=== PATIENT | female | born 1990 | race Caucasian/White ===

== ENCOUNTER 2016-10-30 18:59 | Emergency (ER) | payer OTHER ==
[~2016-10-30] VITALS: Ht 157.4 cm; Wt 95.3 kg
[~2016-10-30 18:59] MED LIST: AMITRIPTYLINE50 MG PO; BACTRIM DS 8001 TA1 PO; BENADRYL25 MG PO; BENTYL10 MG PO; BIRTH CONTROL1 EAC1 PO; CELEXA20 MG PO; CELEXA40 MG PO; CIPRO250 MG PO; CLARITIN10 MG PO; CORDROL20 MG PO; DEPAKOTE250 MG PO; FLONASE 0.05% 121 EA NAS; KEFLEX500 MG PO; KENALOG0.1% TP; LIDEX0.05% T; MACROBID100 M1 PO; MACROBID100 MG PO; PHENERGAN W/DM120 ML PO; PREDNICOT10 MG PO; PREDNICOT20 MG PO; PREDNISONE10 MG PO; PRENATAL ONE DA1 TAB PO; PREVIFEM 35 MCG1 TA1 PO; PROAIR HFA0.09 MG/AC IH; ROBITUSSIN DM 105 ML PO; VISTARIL25 M1 PO; VISTARIL25 MG PO; VISTARIL50 MG PO; WELLBUTRIN SR150 MG PO; ZITHROMAX250 MG PO; ZOFRAN ODT4 MG SL; ZOFRAN4 MG PO; Zofran4 MG PO
[2016-10-30] MEDS ORDERED: DEPAKOTE ER250 MG PO (19:54)
[2016-10-30] MEDS ORDERED: BACTRIM DS 8001 TAB PO (21:57)
== END 2016-10-30 23:23 | disposition home or self-care (01) ==
LOC: ED 18:59
DX: L08.9 Local infection of the skin and subcutaneous tissue, unspecified (principal); L70.9 Acne, unspecified; F17.200 Nicotine dependence, unspecified, uncomplicated; Z79.899 Other long term (current) drug therapy; Z88.0 Allergy status to penicillin; Z88.1 Allergy status to other antibiotic agents

== ENCOUNTER → 2016-11-21 | Outpatient (CLI) | payer OTHER ==
[~2016-11-21] MED LIST changes: +BACTRIM DS 8001 TAB PO; +DEPAKOTE ER250 MG PO
[2016-11-21 12:56] LABS: HEMATOCRIT 45.7 % (37.0-47.0); HEMOGLOBIN 15.6 g/dl (12.0-16.0); HEMOGLOBIN A1c 5.7 % (4.8-5.6); MEAN CELL VOLUME 85.9 fl (81.0-99.0); MEAN CORPUSCULAR HGB 29.3 pg (27.0-31.0); MEAN CORPUSCULAR HGB CONC 34.1 g/dl (33.0-37.0); MEAN PLATELET VOLUME 10.6 fl (9.6-12.3); PLATELET COUNT AUTOMATED 310 10*3/uL (130-400); RED BLOOD COUNT 5.32 10*6/uL (4.10-5.10); RED CELL DISTRI WIDTH 13.3 % (0-14.5); WHITE BLOOD COUNT 11.9 10*3/uL (4.8-10.8)
[2016-11-21 13:08] LABS: ALBUMIN 3.4 gm/dl (3.1-4.5); ALKALINE PHOSPHATASE 114 U/L (45-117); BILIRUBIN, DIRECT < 0.1 mg/dL (0.0-0.2); BUN 12 mg/dl (7-24); CARBON DIOXIDE 26 mmol/L (21-32); CHLORIDE 108 mmol/L (98-107); CHOLESTEROL 176 mg/dL (<200); EST GLOM FILT AFRICAN AMERICAN > 60 ml/min; FREE T4 1.22 ng/dl (0.76-1.46); GLUCOSE 103 mg/dL (65-99); HDL CHOLESTEROL 31 mg/dl (40-60); LDL CHOLESTEROL 120 mg/dL (9-159); POTASSIUM 4.1 mmol/L (3.5-5.1); SGOT/AST 27 IU/L (3-35); SGPT/ALT 61 U/L (12-78); SODIUM 142 mmol/L (136-145); T3 UPTAKE 31 % (31-39); TOTAL PROTEIN 6.8 gm/dL (6.4-8.2); TRIGLYCERIDES 127 mg/dl (<150); VLDL CHOLESTEROL 25 mg/dL (6-40)
[2016-11-21 13:14] LABS: BILIRUBIN, TOTAL 0.3 mg/dl (0.2-1.0)
[2016-11-21 13:15] LABS: ATYPICAL LYMPHS 1 % (0-0); EOSINOPHIL # 0.5 10*3/uL (0-0.4); EOSINOPHILS 4 % (1-4); LYMPHOCYTE # 4.9 10*3/uL (1.3-4.4); MONOCYTE # 0.4 10*3/uL (0.1-1.0); NEUTROPHIL # 6.2 10*3/uL (2.3-7.9); NEUTROPHILS 52 % (47-73); PLATELET SUFFICIENCY NORMAL (NORMAL); TOTAL CELLS COUNTED 100 #CELLS
== END | disposition home or self-care (01) ==
LOC: LAB 12:08
PROVIDERS: Nurse Practitioner Family
DX: Z79.899 Other long term (current) drug therapy (principal)

== ENCOUNTER → 2017-03-03 | Outpatient (CLI) | payer OTHER | LOC: RESCLI 02:04 | DX: F33.42 Major depressive disorder, recurrent, in full remission (principal); E66.09 Other obesity due to excess calories; Z68.41 Body mass index [BMI] 40.0-44.9, adult; Z72.0 Tobacco use ==

== ENCOUNTER 2017-05-11 05:02 | Emergency (ER) | payer OTHER ==
[~2017-05-11] VITALS: Ht 157.4 cm; Wt 90.7 kg
[2017-05-11 05:30] LABS: BILIRUBIN NEGATIVE (NEGATIVE); BLOOD NEGATIVE (NEGATIVE); CLARITY SL CLOUDY (CLEAR); COLOR YELLOW (YELLOW); GLUCOSE NEGATIVE (NEGATIVE); KETONE NEGATIVE (NEGATIVE); LEUKO ESTERASE NEGATIVE (NEGATIVE); NITRITE NEGATIVE (NEGATIVE); SPECIFIC GRAVITY 1.015 (1.005-1.030); UROBILINOGEN 0.2 E.U./dl (0.2-1.0)
[2017-05-11 05:38] LABS: YEAST TRACE
[2017-05-11] MEDS ORDERED: ZYRTEC10 MG PO (05:41)
[2017-05-11] MEDS ORDERED: ZITHROMAX250 MG PO (05:41)
[2017-05-11] MEDS ORDERED: PROAIR HFA8.5 GM INH (05:49)
== END 2017-05-11 06:07 | disposition home or self-care (01) ==
LOC: ED 05:02
PROVIDERS: Emergency Medicine Emergency Medical Services
DX: J20.9 Acute bronchitis, unspecified (principal); J01.00 Acute maxillary sinusitis, unspecified; F17.200 Nicotine dependence, unspecified, uncomplicated; Z88.1 Allergy status to other antibiotic agents; Z88.0 Allergy status to penicillin; Z79.899 Other long term (current) drug therapy

== ENCOUNTER 2017-05-14 23:40 | Emergency (ER) | payer OTHER ==
[~2017-05-14] VITALS: Ht 157.4 cm; Wt 90.7 kg
[~2017-05-14 23:40] MED LIST changes: +PROAIR HFA8.5 GM INH; +ZYRTEC10 MG PO
[2017-05-15 00:28] LABS: ALBUMIN 3.8 gm/dl (3.1-4.5); ALKALINE PHOSPHATASE 106 U/L (45-117); BASO % 0.3 % (0.0-1.0); BUN 5 mg/dl (7-24); CHLORIDE 106 mmol/L (98-107); CREATININE 0.69 mg/dL (0.55-1.02); EOS # 0.1 10*3/uL (0.0-0.4); EOS % 0.4 % (1.0-4.0); HEMATOCRIT 43.9 % (37.0-47.0); HEMOGLOBIN 14.9 g/dl (12.0-16.0); LIPASE 134 U/L (73-393); LYMPH # 4.9 10*3/uL (1.3-4.4); LYMPH % 31.2 % (27.0-41.0); MEAN CELL VOLUME 88.3 fl (81.0-99.0); MEAN CORPUSCULAR HGB CONC 33.9 g/dl (33.0-37.0); MEAN PLATELET VOLUME 10.9 fl (9.6-12.3); MONO # 0.6 10*3/uL (0.1-1.0); MONO % 3.9 % (3.0-9.0); NEUT # 9.9 10*3/uL (2.3-7.9); NEUT % 63.8 % (47.0-73.0); PLATELET COUNT AUTOMATED 257 10*3/uL (130-400); POTASSIUM 3.7 mmol/L (3.5-5.1); RED BLOOD COUNT 4.97 10*6/uL (4.10-5.10); RED CELL DISTRI WIDTH 13.1 % (0-14.5); SGOT/AST 29 IU/L (3-35); SGPT/ALT 74 U/L (12-78); SODIUM 140 mmol/L (136-145); TOTAL PROTEIN 6.8 gm/dL (6.4-8.2); WHITE BLOOD COUNT 15.6 10*3/uL (4.8-10.8)
[2017-05-15 00:37] LABS: BILIRUBIN NEGATIVE (NEGATIVE); BLOOD NEGATIVE (NEGATIVE); CLARITY CLEAR (CLEAR); COLOR YELLOW (YELLOW); GLUCOSE NEGATIVE (NEGATIVE); KETONE NEGATIVE (NEGATIVE); LEUKO ESTERASE NEGATIVE (NEGATIVE); NITRITE NEGATIVE (NEGATIVE); SPECIFIC GRAVITY 1.015 (1.005-1.030); UROBILINOGEN 0.2 E.U./dl (0.2-1.0)
[2017-05-15 00:53] LABS: BACTERIA 1+; EPITHELIAL CELLS 35-40
[2017-05-15 00:54] LABS: WBC 0-2 wbc/hpf (0-5)
== END 2017-05-15 02:22 | disposition home or self-care (01) ==
LOC: ED 23:40
PROVIDERS: Nurse Practitioner Family
DX: R10.30 Lower abdominal pain, unspecified (principal); R11.0 Nausea; R05 Cough; F17.200 Nicotine dependence, unspecified, uncomplicated; Z88.0 Allergy status to penicillin; Z88.1 Allergy status to other antibiotic agents; Z79.899 Other long term (current) drug therapy

== ENCOUNTER 2017-08-04 15:18 | Emergency (ER) | payer SELFPAY ==
[~2017-08-04] VITALS: Ht 157.4 cm; Wt 95.3 kg
[2017-08-04] MEDS ORDERED: PREDNISONE20 M1 PO (16:20)
[2017-08-04] MEDS ORDERED: ZYRTEC10 MG PO (16:20)
[2017-08-04] MEDS ORDERED: ROBITUSSIN DM 105 ML PO (16:20)
== END 2017-08-04 16:26 | disposition home or self-care (01) ==
LOC: ED 15:18
DX: B34.9 Viral infection, unspecified (principal); F17.200 Nicotine dependence, unspecified, uncomplicated; Z88.0 Allergy status to penicillin; Z88.1 Allergy status to other antibiotic agents; Z79.899 Other long term (current) drug therapy

== ENCOUNTER 2017-08-05 12:09 | Emergency (ER) | payer SELFPAY ==
[~2017-08-05] VITALS: Ht 157.4 cm; Wt 95.3 kg
[~2017-08-05 12:09] MED LIST changes: +PREDNISONE20 M1 PO
[2017-08-05 12:33] LABS: BASO % 0.3 % (0.0-1.0); EOS # 0.2 10*3/uL (0.0-0.4); EOS % 3.1 % (1.0-4.0); HEMATOCRIT 41.5 % (37.0-47.0); HEMOGLOBIN 14.3 g/dl (12.0-16.0); LYMPH # 2.5 10*3/uL (1.3-4.4); LYMPH % 40.6 % (27.0-41.0); MEAN CORPUSCULAR HGB CONC 34.5 g/dl (33.0-37.0); MEAN PLATELET VOLUME 11.1 fl (9.6-12.3); MONO # 0.2 10*3/uL (0.1-1.0); MONO % 3.6 % (3.0-9.0); NEUT # 3.2 10*3/uL (2.3-7.9); NEUT % 52.2 % (47.0-73.0); PLATELET COUNT AUTOMATED 176 10*3/uL (130-400); RED BLOOD COUNT 4.77 10*6/uL (4.10-5.10); RED CELL DISTRI WIDTH 13.3 % (0-14.5); WHITE BLOOD COUNT 6.2 10*3/uL (4.8-10.8)
[2017-08-05 12:42] LABS: ACT PARTIAL THROMBO TIME 26.3 SECONDS (20.8-31.5); INTERNATIONAL NORM RATIO 0.9 (2.0-3.5)
[2017-08-05 12:50] LABS: ALBUMIN 3.3 gm/dl (3.1-4.5); ALKALINE PHOSPHATASE 103 U/L (45-117); BUN 9 mg/dl (7-24); CHLORIDE 109 mmol/L (98-107); CREATININE 0.78 mg/dL (0.55-1.02); POTASSIUM 3.6 mmol/L (3.5-5.1); SGOT/AST 46 IU/L (3-35); SGPT/ALT 89 U/L (12-78); SODIUM 140 mmol/L (136-145); TOTAL PROTEIN 6.2 gm/dL (6.4-8.2)
[2017-08-05 12:52] LABS: TROPONIN I < 0.015 ng/ml (<0.045)
== END 2017-08-05 12:48 | disposition home or self-care (01) ==
LOC: ED 12:09
PROVIDERS: Emergency Medicine
DX: R09.1 Pleurisy (principal); J06.9 Acute upper respiratory infection, unspecified; R05 Cough; Z79.899 Other long term (current) drug therapy; Z88.0 Allergy status to penicillin; Z88.1 Allergy status to other antibiotic agents

== ENCOUNTER 2017-10-10 22:39 | Emergency (ER) | payer SELFPAY ==
[~2017-10-10] VITALS: Ht 157.4 cm; Wt 99.8 kg
== END 2017-10-11 01:07 | disposition home or self-care (01) ==
LOC: ED 22:39
DX: R11.2 Nausea with vomiting, unspecified (principal); F17.200 Nicotine dependence, unspecified, uncomplicated; Z79.899 Other long term (current) drug therapy; Z88.0 Allergy status to penicillin; Z88.1 Allergy status to other antibiotic agents

== ENCOUNTER 2017-10-19 23:01 | Emergency (ER) | payer SELFPAY ==
[~2017-10-19] VITALS: Ht 157.4 cm; Wt 99.8 kg
[2017-10-19 23:34] LABS: HEMATOCRIT 40.1 % (37.0-47.0); MEAN CELL VOLUME 86.1 fl (81.0-99.0); MEAN CORPUSCULAR HGB CONC 34.9 g/dl (33.0-37.0); MEAN PLATELET VOLUME 10.5 fl (9.6-12.3); PLATELET COUNT AUTOMATED 290 10*3/uL (130-400); RED BLOOD COUNT 4.66 10*6/uL (4.10-5.10); WHITE BLOOD COUNT 14.7 10*3/uL (4.8-10.8)
[2017-10-19 23:50] LABS: ALBUMIN 3.3 gm/dl (3.1-4.5); ALKALINE PHOSPHATASE 108 U/L (45-117); BUN 7 mg/dl (7-24); CHLORIDE 107 mmol/L (98-107); CREATININE 0.72 mg/dL (0.55-1.02); POTASSIUM 3.2 mmol/L (3.5-5.1); SGOT/AST 31 IU/L (3-35); SGPT/ALT 71 U/L (12-78); SODIUM 141 mmol/L (136-145); TOTAL PROTEIN 6.1 gm/dL (6.4-8.2)
[2017-10-19 23:52] LABS: TOTAL CELLS COUNTED 100 #CELLS
[2017-10-19 23:53] LABS: PLATELET SUFFICIENCY NORMAL (NORMAL)
[2017-10-20 00:03] LABS: BETA-HCG, QUANT < 1.0 mIU/mL (1-3)
== END 2017-10-20 00:35 | disposition home or self-care (01) ==
LOC: ED 23:01
PROVIDERS: Student in an Organized Health Care Education/Training Program
DX: R11.2 Nausea with vomiting, unspecified (principal); R10.84 Generalized abdominal pain; F17.200 Nicotine dependence, unspecified, uncomplicated; Z88.0 Allergy status to penicillin; Z88.1 Allergy status to other antibiotic agents; Z79.899 Other long term (current) drug therapy

== ENCOUNTER 2017-11-16 14:22 | Emergency (ER) | payer SELFPAY ==
[~2017-11-16] VITALS: Ht 157.4 cm; Wt 99.8 kg
[2017-11-16 14:46] LABS: BILIRUBIN NEGATIVE (NEGATIVE); BLOOD NEGATIVE (NEGATIVE); CLARITY CLEAR (CLEAR); COLOR YELLOW (YELLOW); GLUCOSE NEGATIVE (NEGATIVE); KETONE NEGATIVE (NEGATIVE); LEUKO ESTERASE NEGATIVE (NEGATIVE); NITRITE NEGATIVE (NEGATIVE); PH 6.5 (5.0-9.0); SPECIFIC GRAVITY <= 1.005 (1.005-1.030); UROBILINOGEN 0.2 E.U./dl (0.2-1.0)
[2017-11-16 15:00] LABS: BACTERIA 1+; EPITHELIAL CELLS TNTC; RBC 0-2 rbc/hpf (0-2); WBC 0-2 wbc/hpf (0-5)
[2017-11-16 15:05] LABS: BASO # 0.1 10*3/uL (0.0-0.1); BASO % 0.3 % (0.0-1.0); EOS # 0.2 10*3/uL (0.0-0.4); EOS % 1.3 % (1.0-4.0); HEMATOCRIT 43.4 % (37.0-47.0); HEMOGLOBIN 14.9 g/dl (12.0-16.0); LYMPH # 4.6 10*3/uL (1.3-4.4); LYMPH % 29.4 % (27.0-41.0); MEAN CELL VOLUME 86.5 fl (81.0-99.0); MEAN CORPUSCULAR HGB 29.7 pg (27.0-31.0); MEAN CORPUSCULAR HGB CONC 34.3 g/dl (33.0-37.0); MEAN PLATELET VOLUME 10.6 fl (9.6-12.3); MONO # 0.5 10*3/uL (0.1-1.0); MONO % 3.1 % (3.0-9.0); NEUT # 10.2 10*3/uL (2.3-7.9); NEUT % 65.5 % (47.0-73.0); PLATELET COUNT AUTOMATED 282 10*3/uL (130-400); RED BLOOD COUNT 5.02 10*6/uL (4.10-5.10); RED CELL DISTRI WIDTH 13.2 % (0-14.5); WHITE BLOOD COUNT 15.6 10*3/uL (4.8-10.8)
[2017-11-16 15:23] LABS: ALBUMIN 3.6 gm/dl (3.1-4.5); ALKALINE PHOSPHATASE 122 U/L (45-117); BUN 6 mg/dl (7-24); CHLORIDE 108 mmol/L (98-107); CREATININE 0.81 mg/dL (0.55-1.02); LIPASE 122 U/L (73-393); POTASSIUM 3.4 mmol/L (3.5-5.1); SGOT/AST 32 IU/L (3-35); SGPT/ALT 63 U/L (12-78); SODIUM 142 mmol/L (136-145); TOTAL PROTEIN 6.7 gm/dL (6.4-8.2)
[2017-11-16] MEDS ORDERED: CLARITIN10 MG PO (15:51)
[2017-11-16] MEDS ORDERED: ZOFRAN4 MG PO (15:51)
[2017-11-16] MEDS ORDERED: PREDNISONE10 MG PO (15:51)
== END 2017-11-16 16:00 | disposition home or self-care (01) ==
LOC: ED 14:22
PROVIDERS: Nurse Practitioner Family
DX: J20.9 Acute bronchitis, unspecified (principal); R03.0 Elevated blood-pressure reading, without diagnosis of hypertension; F17.200 Nicotine dependence, unspecified, uncomplicated; Z79.899 Other long term (current) drug therapy; Z88.0 Allergy status to penicillin; Z88.1 Allergy status to other antibiotic agents

== ENCOUNTER 2018-01-06 15:29 | Emergency (ER) | payer SELFPAY ==
[~2018-01-06] VITALS: Wt 95.3 kg
[2018-01-06 16:02] LABS: BASO # 0.1 10*3/uL (0.0-0.1); BASO % 0.4 % (0.0-1.0); EOS # 0.2 10*3/uL (0.0-0.4); HEMATOCRIT 46.9 % (37.0-47.0); HEMOGLOBIN 15.9 g/dl (12.0-16.0); LYMPH # 4.6 10*3/uL (1.3-4.4); LYMPH % 30.1 % (27.0-41.0); MEAN CELL VOLUME 87.8 fl (81.0-99.0); MEAN CORPUSCULAR HGB 29.8 pg (27.0-31.0); MEAN CORPUSCULAR HGB CONC 33.9 g/dl (33.0-37.0); MEAN PLATELET VOLUME 10.7 fl (9.6-12.3); MONO # 0.4 10*3/uL (0.1-1.0); MONO % 2.7 % (3.0-9.0); NEUT % 65.5 % (47.0-73.0); PLATELET COUNT AUTOMATED 281 10*3/uL (130-400); RED BLOOD COUNT 5.34 10*6/uL (4.10-5.10); RED CELL DISTRI WIDTH 13.2 % (0-14.5); WHITE BLOOD COUNT 15.3 10*3/uL (4.8-10.8)
[2018-01-06 16:16] LABS: BILIRUBIN NEGATIVE (NEGATIVE); BLOOD NEGATIVE (NEGATIVE); CLARITY CLEAR (CLEAR); COLOR YELLOW (YELLOW); GLUCOSE NEGATIVE (NEGATIVE); KETONE NEGATIVE (NEGATIVE); LEUKO ESTERASE NEGATIVE (NEGATIVE); NITRITE NEGATIVE (NEGATIVE); SPECIFIC GRAVITY <= 1.005 (1.005-1.030); UROBILINOGEN 0.2 E.U./dl (0.2-1.0)
[2018-01-06 16:18] LABS: ALBUMIN 4.1 gm/dl (3.1-4.5); ALKALINE PHOSPHATASE 118 U/L (45-117); BUN 7 mg/dl (7-24); CHLORIDE 106 mmol/L (98-107); CREATININE 0.85 mg/dL (0.55-1.02); LIPASE 145 U/L (73-393); POTASSIUM 3.8 mmol/L (3.5-5.1); SGOT/AST 33 IU/L (3-35); SGPT/ALT 67 U/L (12-78); SODIUM 139 mmol/L (136-145); TOTAL PROTEIN 7.2 gm/dL (6.4-8.2)
[2018-01-06 16:24] LABS: EPITHELIAL CELLS 0-2; WBC 0-2 wbc/hpf (0-5)
[2018-01-06] MEDS ORDERED: ZOFRAN ODT4 MG SL ×2 (18:02→18:23)
== END 2018-01-06 18:30 | disposition home or self-care (01) ==
LOC: ED 15:29
PROVIDERS: Physician Assistant
DX: R11.2 Nausea with vomiting, unspecified (principal); R10.32 Left lower quadrant pain; Z88.0 Allergy status to penicillin; Z88.1 Allergy status to other antibiotic agents; Z79.899 Other long term (current) drug therapy

== ENCOUNTER 2018-03-29 22:35 | Emergency (ER) | payer SELFPAY ==
[~2018-03-29] VITALS: Ht 157.4 cm; Wt 99.8 kg
[2018-03-29 23:14] LABS: BILIRUBIN NEGATIVE (NEGATIVE); BLOOD NEGATIVE (NEGATIVE); CLARITY SL CLOUDY (CLEAR); COLOR YELLOW (YELLOW); GLUCOSE NEGATIVE (NEGATIVE); KETONE NEGATIVE (NEGATIVE); LEUKO ESTERASE NEGATIVE (NEGATIVE); NITRITE NEGATIVE (NEGATIVE); PH 5.5 (5.0-9.0); SPECIFIC GRAVITY > 1.030 (1.005-1.030); UROBILINOGEN 0.2 E.U./dl (0.2-1.0)
[2018-03-29 23:19] LABS: BACTERIA 1+; EPITHELIAL CELLS 30-35; MUCOUS TRACE; WBC 0-2 wbc/hpf (0-5)
[2018-03-30] MEDS ORDERED: CYCLOBENZAPRINE10 MG PO (01:16)
[2018-03-30] MEDS ORDERED: MOBIC7.5 MG PO (01:16)
== END 2018-03-30 01:17 | disposition home or self-care (01) ==
LOC: ED 22:35
PROVIDERS: Emergency Medicine
DX: S39.012A Strain of muscle, fascia and tendon of lower back, initial encounter (principal); Z88.0 Allergy status to penicillin; Z88.1 Allergy status to other antibiotic agents; W18.39XA Other fall on same level, initial encounter; Y93.89 Activity, other specified; Y92.89 Other specified places as the place of occurrence of the external cause; Y99.8 Other external cause status

== ENCOUNTER 2018-08-11 18:21 | Emergency (ER) | payer SELFPAY ==
[~2018-08-11] VITALS: Ht 157.4 cm; Wt 95.3 kg
[~2018-08-11 18:21] MED LIST changes: +CYCLOBENZAPRINE10 MG PO; +MOBIC7.5 MG PO
[2018-09-15] MEDS ORDERED: HYDROCODONE-AC1 EAC1 PO (14:46)
[2018-09-15] MEDS ORDERED: ZOVIRAX IV (14:58)
[2018-10-10] MEDS ORDERED: ZOVIRAX IJ (14:04)
[2018-10-15] MEDS ORDERED: ZOVIRAX IV (11:14)
[2018-11-23] MEDS ORDERED: ZOFRAN4 MG PO (00:28)
== END 2018-08-11 19:27 | disposition home or self-care (01) ==
LOC: ED 18:21
DX: S80.02XA Contusion of left knee, initial encounter (principal); Z88.0 Allergy status to penicillin; Z88.1 Allergy status to other antibiotic agents; W19.XXXA Unspecified fall, initial encounter; Y93.89 Activity, other specified; Y92.89 Other specified places as the place of occurrence of the external cause; Y99.8 Other external cause status

== ENCOUNTER 2018-08-30 22:58 | Emergency (ER) | payer SELFPAY ==
[~2018-08-30] VITALS: Ht 157.4 cm; Wt 95.3 kg
[2018-08-30 23:48] LABS: BASO % 0.2 % (0.0-1.0); EOS # 0.1 10*3/uL (0.0-0.4); EOS % 0.5 % (1.0-4.0); HEMATOCRIT 45.3 % (37.0-47.0); HEMOGLOBIN 15.4 g/dl (12.0-16.0); LYMPH # 2.5 10*3/uL (1.3-4.4); LYMPH % 18.4 % (27.0-41.0); MEAN CELL VOLUME 90.1 fl (81.0-99.0); MEAN CORPUSCULAR HGB 30.6 pg (27.0-31.0); MEAN PLATELET VOLUME 10.5 fl (9.6-12.3); MONO # 0.4 10*3/uL (0.1-1.0); MONO % 2.9 % (3.0-9.0); NEUT # 10.6 10*3/uL (2.3-7.9); NEUT % 77.7 % (47.0-73.0); PLATELET COUNT AUTOMATED 229 10*3/uL (130-400); RED BLOOD COUNT 5.03 10*6/uL (4.10-5.10); RED CELL DISTRI WIDTH 13.2 % (0-14.5); WHITE BLOOD COUNT 13.6 10*3/uL (4.8-10.8)
[2018-08-31 00:14] LABS: ALBUMIN 3.6 gm/dl (3.1-4.5); ALKALINE PHOSPHATASE 109 U/L (45-117); BUN 14 mg/dl (7-24); CHLORIDE 105 mmol/L (98-107); CREATININE 0.85 mg/dL (0.55-1.02); LIPASE 104 U/L (73-393); POTASSIUM 3.3 mmol/L (3.5-5.1); SGOT/AST 14 IU/L (3-35); SGPT/ALT 37 U/L (12-78); SODIUM 139 mmol/L (136-145); TOTAL PROTEIN 6.5 gm/dL (6.4-8.2)
[2018-09-15] MEDS ORDERED: HYDROCODONE-AC1 EAC1 PO (14:46)
[2018-09-15] MEDS ORDERED: ZOVIRAX IV (14:58)
[2018-10-10] MEDS ORDERED: ZOVIRAX IJ (14:04)
[2018-10-15] MEDS ORDERED: ZOVIRAX IV (11:14)
[2018-11-23] MEDS ORDERED: ZOFRAN4 MG PO (00:28)
== END 2018-08-31 03:03 | disposition home or self-care (01) ==
LOC: ED 22:58
PROVIDERS: Nurse Practitioner Family
DX: A08.4 Viral intestinal infection, unspecified (principal); F17.200 Nicotine dependence, unspecified, uncomplicated; Z88.0 Allergy status to penicillin; Z88.1 Allergy status to other antibiotic agents

== ENCOUNTER 2018-09-11 22:25 | Emergency (ER) | payer SELFPAY ==
[~2018-09-11] VITALS: Ht 157.4 cm; Wt 95.3 kg
[2018-09-12 00:12] LABS: BASO # 0.1 10*3/uL (0.0-0.1); BASO % 0.3 % (0.0-1.0); EOS % 0.1 % (1.0-4.0); HEMOGLOBIN 15.7 g/dl (12.0-16.0); LYMPH # 3.2 10*3/uL (1.3-4.4); LYMPH % 16.5 % (27.0-41.0); MEAN CELL VOLUME 90.6 fl (81.0-99.0); MEAN CORPUSCULAR HGB 30.3 pg (27.0-31.0); MEAN CORPUSCULAR HGB CONC 33.4 g/dl (33.0-37.0); MEAN PLATELET VOLUME 10.3 fl (9.6-12.3); MONO # 0.6 10*3/uL (0.1-1.0); MONO % 2.9 % (3.0-9.0); NEUT # 15.4 10*3/uL (2.3-7.9); NEUT % 79.7 % (47.0-73.0); PLATELET COUNT AUTOMATED 299 10*3/uL (130-400); RED BLOOD COUNT 5.19 10*6/uL (4.10-5.10); RED CELL DISTRI WIDTH 13.3 % (0-14.5); WHITE BLOOD COUNT 19.3 10*3/uL (4.8-10.8)
[2018-09-12 00:35] LABS: ALBUMIN 4.1 gm/dl (3.1-4.5); ALKALINE PHOSPHATASE 126 U/L (45-117); BUN 9 mg/dl (7-24); CHLORIDE 105 mmol/L (98-107); CREATININE 0.85 mg/dL (0.55-1.02); LIPASE 80 U/L (73-393); POTASSIUM 3.7 mmol/L (3.5-5.1); SGOT/AST 22 IU/L (3-35); SGPT/ALT 64 U/L (12-78); SODIUM 141 mmol/L (136-145); TOTAL PROTEIN 7.2 gm/dL (6.4-8.2)
[2018-09-12] MEDS ORDERED: ZOFRAN4 MG PO (02:51)
[2018-09-15] MEDS ORDERED: HYDROCODONE-AC1 EAC1 PO (14:46)
[2018-09-15] MEDS ORDERED: ZOVIRAX IV (14:58)
[2018-10-10] MEDS ORDERED: ZOVIRAX IJ (14:04)
[2018-10-15] MEDS ORDERED: ZOVIRAX IV (11:14)
[2018-11-23] MEDS ORDERED: ZOFRAN4 MG PO (00:28)
== END 2018-09-12 03:15 | disposition home or self-care (01) ==
LOC: ED 22:25
PROVIDERS: Nurse Practitioner Family
DX: R11.2 Nausea with vomiting, unspecified (principal); R53.83 Other fatigue; R52 Pain, unspecified; Z88.0 Allergy status to penicillin; Z88.1 Allergy status to other antibiotic agents; Z79.899 Other long term (current) drug therapy

== ENCOUNTER 2018-09-17 00:59 | Emergency (ER) | payer BC ==
[~2018-09-17] VITALS: Ht 157.4 cm; Wt 95.3 kg
[~2018-09-17 00:59] MED LIST changes: +HYDROCODONE-AC1 EAC1 PO; +ZOVIRAX IV
[2018-10-10] MEDS ORDERED: ZOVIRAX IJ (14:04)
[2018-10-15] MEDS ORDERED: ZOVIRAX IV (11:14)
[2018-11-23] MEDS ORDERED: ZOFRAN4 MG PO (00:28)
== END 2018-09-17 02:07 | disposition home or self-care (01) ==
LOC: ED 00:59
DX: T82.848A Pain due to vascular prosthetic devices, implants and grafts, initial encounter (principal); G89.18 Other acute postprocedural pain; M79.601 Pain in right arm; F17.200 Nicotine dependence, unspecified, uncomplicated; Z88.0 Allergy status to penicillin; Z88.1 Allergy status to other antibiotic agents; Y83.8 Other surgical procedures as the cause of abnormal reaction of the patient, or of later complication, without mention of misadventure at the time of the procedure; Y92.89 Other specified places as the place of occurrence of the external cause

== ENCOUNTER → 2018-10-26 | Outpatient (CLI) | payer BC ==
[~2018-10-26] MED LIST changes: +ZOVIRAX IJ
[2018-10-29 18:04] LABS: BLASTOMYCES ANTIBODY Negative (Neg:<1:1)
[2018-10-30 21:05] LABS: COCCIDIOIDES IGG 0.5 IV (<=0.9); COCCIDIOIDES IGM 0.5 IV (<=0.9)
== END | disposition home or self-care (01) ==
LOC: LAB 14:58
PROVIDERS: Internal Medicine
DX: N93.9 Abnormal uterine and vaginal bleeding, unspecified (principal); G03.9 Meningitis, unspecified

== ENCOUNTER 2019-03-08 00:01 | Emergency (ER) | payer BC ==
[~2019-03-08] VITALS: Ht 157.4 cm; Wt 96.2 kg
[2019-03-08] MEDS ORDERED: SEPTDS PO (01:22)
[2019-03-08] MEDS ORDERED: KEFLEX500 M1 PO (01:22)
== END 2019-03-08 01:32 | disposition home or self-care (01) ==
LOC: ED 00:01
DX: L02.214 Cutaneous abscess of groin (principal); L73.8 Other specified follicular disorders; F17.200 Nicotine dependence, unspecified, uncomplicated; Z88.0 Allergy status to penicillin; Z88.1 Allergy status to other antibiotic agents

== ENCOUNTER 2019-08-31 03:16 | Emergency (ER) | payer BC ==
[~2019-08-31] VITALS: Wt 96.6 kg
[~2019-08-31 03:16] MED LIST changes: +KEFLEX500 M1 PO; +SEPTDS PO
== END 2019-08-31 05:04 | disposition home or self-care (01) ==
LOC: ED 03:16
DX: J02.9 Acute pharyngitis, unspecified (principal); R09.89 Other specified symptoms and signs involving the circulatory and respiratory systems; Z88.8 Allergy status to other drugs, medicaments and biological substances; Z88.0 Allergy status to penicillin

== ENCOUNTER 2020-01-09 19:54 | Emergency (ER) | payer BC ==
[~2020-01-09] VITALS: Ht 157.4 cm; Wt 95.3 kg
[2020-01-09 20:30] LABS: BASO % 0.3 % (0.0-1.0); EOS # 0.2 10*3/uL (0.0-0.4); EOS % 1.4 % (1.0-4.0); HEMATOCRIT 45.2 % (37.0-47.0); LYMPH # 4.3 10*3/uL (1.3-4.4); LYMPH % 32.4 % (27.0-41.0); MEAN CELL VOLUME 87.9 fl (81.0-99.0); MEAN CORPUSCULAR HGB 29.2 pg (27.0-31.0); MEAN CORPUSCULAR HGB CONC 33.2 g/dl (33.0-37.0); MEAN PLATELET VOLUME 10.3 fl (9.6-12.3); MONO # 0.4 10*3/uL (0.1-1.0); NEUT # 8.2 10*3/uL (2.3-7.9); NEUT % 62.7 % (47.0-73.0); PLATELET COUNT AUTOMATED 280 10*3/uL (130-400); RED BLOOD COUNT 5.14 10*6/uL (4.10-5.10); RED CELL DISTRI WIDTH 13.2 % (0-14.5); WHITE BLOOD COUNT 13.2 10*3/uL (4.8-10.8)
[2020-01-09 20:41] LABS: ACT PARTIAL THROMBO TIME 28.7 SECONDS (20.0-32.1)
[2020-01-09 20:45] LABS: ALKALINE PHOSPHATASE 91 U/L (45-117); BUN 13 mg/dl (7-24); CHLORIDE 110 mmol/L (98-107); CREATININE 0.77 mg/dL (0.55-1.02); LIPASE 114 U/L (73-393); POTASSIUM 3.7 mmol/L (3.5-5.1); SGOT/AST 18 IU/L (3-35); SGPT/ALT 43 U/L (12-78); SODIUM 140 mmol/L (136-145); TOTAL PROTEIN 6.6 gm/dL (6.4-8.2)
[2020-01-09 20:47] LABS: BETA-HCG, QUANT < 1.0 mIU/mL (1-3); TROPONIN I < 0.015 ng/ml (<0.045)
== END 2020-01-09 22:21 | disposition home or self-care (01) ==
LOC: ED 19:54
PROVIDERS: Family Medicine
DX: R07.9 Chest pain, unspecified (principal); F32.9 Major depressive disorder, single episode, unspecified; I10 Essential (primary) hypertension; E78.00 Pure hypercholesterolemia, unspecified; F17.200 Nicotine dependence, unspecified, uncomplicated; Z88.8 Allergy status to other drugs, medicaments and biological substances; Z88.0 Allergy status to penicillin

== ENCOUNTER 2020-02-14 15:35 | Emergency (ER) | payer BC ==
[2020-02-14 16:41] LABS: BILIRUBIN NEGATIVE; BLOOD NEGATIVE (NEGATIVE); CLARITY CLEAR (CLEAR); COLOR YELLOW (YELLOW); GLUCOSE NEGATIVE; KETONE NEGATIVE; LEUKO ESTERASE NEGATIVE (NEGATIVE); NITRITE NEGATIVE (NEGATIVE); PH 6.5 (4.5-8.0); SPECIFIC GRAVITY 1.005 (1.001-1.030); UROBILINOGEN 0.2 E.U./dl (0.0-1.0)
[2020-02-14 16:51] LABS: BACTERIA 1+; RBC 0-2 rbc/hpf (0-2); WBC 0-2 wbc/hpf (0-5)
== END 2020-02-14 16:56 | disposition home or self-care (01) ==
LOC: ED 15:35
PROVIDERS: Nurse Practitioner Family
DX: Z32.02 Encounter for pregnancy test, result negative (principal); I10 Essential (primary) hypertension; F32.9 Major depressive disorder, single episode, unspecified; E78.00 Pure hypercholesterolemia, unspecified; F17.200 Nicotine dependence, unspecified, uncomplicated

== ENCOUNTER 2020-05-15 16:49 | Emergency (ER) | payer BC ==
[~2020-05-15] VITALS: Ht 157.4 cm; Wt 90.7 kg
[2020-05-15] MEDS ORDERED: CLEOCIN HCL300 MG PO (18:41)
== END 2020-05-15 18:52 | disposition home or self-care (01) ==
LOC: ED 16:49
DX: K02.9 Dental caries, unspecified (principal); Z88.0 Allergy status to penicillin; Z88.8 Allergy status to other drugs, medicaments and biological substances

== ENCOUNTER 2020-08-14 11:24 | Emergency (ER) | payer BC ==
[~2020-08-14] VITALS: Ht 157.4 cm; Wt 99.8 kg
[~2020-08-14 11:24] MED LIST changes: +CLEOCIN HCL300 MG PO
[2020-08-14] MEDS ORDERED: CLINDAMYCIN HC300 MG PO (12:36)
[2020-08-14] MEDS ORDERED: IBUPROFEN600 MG PO (12:36)
== END 2020-08-14 12:59 | disposition home or self-care (01) ==
LOC: ED 11:24
DX: K08.89 Other specified disorders of teeth and supporting structures (principal); I10 Essential (primary) hypertension; F32.9 Major depressive disorder, single episode, unspecified; E78.00 Pure hypercholesterolemia, unspecified; F17.200 Nicotine dependence, unspecified, uncomplicated; Z88.0 Allergy status to penicillin; Z88.2 Allergy status to sulfonamides

== ENCOUNTER 2021-06-12 18:12 | Emergency (ER) | payer BC ==
[~2021-06-12 18:12] MED LIST changes: +CLINDAMYCIN HC300 MG PO; +IBUPROFEN600 MG PO
[2021-06-12] MEDS ORDERED: SEPTDS PO (21:47)
== END 2021-06-12 21:51 | disposition home or self-care (01) ==
LOC: ED 18:12
DX: L02.411 Cutaneous abscess of right axilla (principal); F17.200 Nicotine dependence, unspecified, uncomplicated; Z88.0 Allergy status to penicillin; Z88.1 Allergy status to other antibiotic agents

== ENCOUNTER 2021-11-20 22:46 | Emergency (ER) | payer OTHER ==
[~2021-11-20] VITALS: Ht 157.4 cm; Wt 90.7 kg
[2021-11-20 23:14] LABS: BILIRUBIN Negative (Negative); BLOOD Negative (Negative); CLARITY Clear (Clear); COLOR Yellow (Yellow); GLUCOSE Negative (Negative); KETONE Negative (Negative); LEUKO ESTERASE Negative (Negative); NITRITE Negative (Negative); UROBILINOGEN 0.2 E.U./dl (0.0-1.0)
[2021-11-20 23:35] LABS: BACTERIA 1+; EPITHELIAL CELLS 21-30
[2021-11-20 23:36] LABS: RBC 0-2 rbc/hpf (0-2); WBC 0-2 wbc/hpf (0-5)
[2021-11-20] MEDS ORDERED: NAPROXEN250 MG PO (23:53)
== END 2021-11-21 00:15 | disposition home or self-care (01) ==
LOC: ED 22:46
PROVIDERS: Internal Medicine
DX: L72.8 Other follicular cysts of the skin and subcutaneous tissue (principal); M54.50 Low back pain, unspecified; R10.9 Unspecified abdominal pain

== ENCOUNTER 2022-02-03 22:14 | Emergency (ER) | payer OTHER ==
[~2022-02-03 22:14] MED LIST changes: +NAPROXEN250 MG PO
[2022-02-04] MEDS ORDERED: Orphenadrine C100 MG PO (01:02)
[2022-02-04] MEDS ORDERED: PREDNISONE10 MG PO (01:02)
== END 2022-02-04 01:12 | disposition home or self-care (01) ==
LOC: ED 22:14
DX: S16.1XXA Strain of muscle, fascia and tendon at neck level, initial encounter (principal); M54.12 Radiculopathy, cervical region; E66.9 Obesity, unspecified; Z88.0 Allergy status to penicillin; Z88.1 Allergy status to other antibiotic agents; Z87.891 Personal history of nicotine dependence; X50.0XXA Overexertion from strenuous movement or load, initial encounter; Y93.89 Activity, other specified; Y92.89 Other specified places as the place of occurrence of the external cause; Y99.8 Other external cause status

== ENCOUNTER 2022-03-09 13:16 | Emergency (ER) | payer OTHER ==
[~2022-03-09] VITALS: Wt 97.5 kg
[~2022-03-09 13:16] MED LIST changes: +Orphenadrine C100 MG PO
[2022-03-09] MEDS ORDERED: CEPHALEXIN500 M1 PO (13:53)
== END 2022-03-09 14:15 | disposition home or self-care (01) ==
LOC: ED 13:16
DX: L02.412 Cutaneous abscess of left axilla (principal)

== ENCOUNTER 2022-03-18 22:35 | Emergency (ER) | payer OTHER ==
[~2022-03-18] VITALS: Ht 157.4 cm; Wt 99.8 kg
[~2022-03-18 22:35] MED LIST changes: +CEPHALEXIN500 M1 PO
[2022-03-18] MEDS ORDERED: SEPTDS PO (23:54)
== END 2022-03-19 00:05 | disposition home or self-care (01) ==
LOC: ED 22:35
DX: L73.9 Follicular disorder, unspecified (principal); Z88.0 Allergy status to penicillin; Z88.1 Allergy status to other antibiotic agents; Z87.891 Personal history of nicotine dependence

== ENCOUNTER → 2022-07-19 | Outpatient (CLI) | payer OTHER ==
[2022-07-19 07:22] LABS: HEMATOCRIT 44.4 % (37.0-47.0); MEAN CELL VOLUME 85.9 fl (81.0-99.0); MEAN CORPUSCULAR HGB 29.4 pg (27.0-31.0); MEAN CORPUSCULAR HGB CONC 34.2 g/dl (33.0-37.0); MEAN PLATELET VOLUME 9.8 fl (9.6-12.3); RED BLOOD COUNT 5.17 10*6/uL (4.10-5.10); RED CELL DISTRI WIDTH 12.9 % (0-14.5); WHITE BLOOD COUNT 14.7 10*3/uL (4.8-10.8)
== END | disposition home or self-care (01) ==
LOC: LAB 07:06
PROVIDERS: ATTEND Physician Assistant
DX: I10 Essential (primary) hypertension (principal); R23.3 Spontaneous ecchymoses

== ENCOUNTER 2022-08-11 09:52 | Emergency (ER) | payer OTHER ==
[~2022-08-11] VITALS: Wt 99.8 kg
[2022-08-11 11:18] LABS: HEMATOCRIT 46.3 % (37.0-47.0); MEAN CELL VOLUME 86.7 fl (81.0-99.0); MEAN CORPUSCULAR HGB 29.4 pg (27.0-31.0); MEAN CORPUSCULAR HGB CONC 33.9 g/dl (33.0-37.0); MEAN PLATELET VOLUME 10.3 fl (9.6-12.3); PLATELET COUNT AUTOMATED 375 10*3/uL (130-400); RED BLOOD COUNT 5.34 10*6/uL (4.10-5.10); RED CELL DISTRI WIDTH 13.2 % (0-14.5); WHITE BLOOD COUNT 19.8 10*3/uL (4.8-10.8)
[2022-08-11 11:31] LABS: MANUAL DIFF REFLEX YES
[2022-08-11 11:38] LABS: ALKALINE PHOSPHATASE 127 U/L (46-116); BETA-HCG, QUANT < 3.0 mIU/mL (0-10); BUN 8 mg/dl (9-23); CHLORIDE 102 mmol/L (98-107); LIPASE 46 U/L (12-53); POTASSIUM 3.7 mmol/L (3.4-5.1); SGPT/ALT 67 U/L (10-49); TOTAL PROTEIN 7.4 gm/dL (6.0-8.0)
[2022-08-11 11:42] LABS: ATYPICAL LYMPHS 3 % (0-0); PLATELET SUFFICIENCY NORMAL (NORMAL); POLYCHROMASIA SLIGHT; TOTAL CELLS COUNTED 100 #CELLS; TOXIC GRANULATION SLIGHT; VACUOLATION OF NEUTROPHILS SLIGHT
== END 2022-08-11 15:30 | disposition home or self-care (01) ==
LOC: ED 09:52
PROVIDERS: Internal Medicine
DX: R19.7 Diarrhea, unspecified (principal); F32.A Depression, unspecified; I10 Essential (primary) hypertension; Z88.0 Allergy status to penicillin; Z88.1 Allergy status to other antibiotic agents

== ENCOUNTER 2022-11-27 00:49 | Emergency (ER) | payer OTHER ==
[~2022-11-27] VITALS: Ht 162.5 cm; Wt 99.8 kg
[2022-11-27] MEDS ORDERED: VIBRAMYCIN100 MG PO (02:40)
== END 2022-11-27 02:42 | disposition home or self-care (01) ==
LOC: ED 00:49
DX: F41.9 Anxiety disorder, unspecified (principal); L73.2 Hidradenitis suppurativa; R42 Dizziness and giddiness; R07.89 Other chest pain; Z88.0 Allergy status to penicillin; Z88.1 Allergy status to other antibiotic agents; Z87.891 Personal history of nicotine dependence

== ENCOUNTER 2022-12-25 20:49 | Emergency (ER) | payer OTHER ==
[~2022-12-25] VITALS: Ht 160 cm; Wt 99.8 kg
[~2022-12-25 20:49] MED LIST changes: +VIBRAMYCIN100 MG PO
[2022-12-25] MEDS ORDERED: NORVASC10 MG PO (21:09)
[2022-12-25] MEDS ORDERED: LAMICTAL25 MG PO (21:09)
[2022-12-25] MEDS ORDERED: ZESTRIL10 MG PO (21:10)
[2022-12-25] MEDS ORDERED: CLINDAMYCIN HC300 MG PO (21:54)
== END 2022-12-25 21:53 | disposition home or self-care (01) ==
LOC: ED 20:49
DX: K08.89 Other specified disorders of teeth and supporting structures (principal); F17.200 Nicotine dependence, unspecified, uncomplicated; Z88.0 Allergy status to penicillin; Z88.1 Allergy status to other antibiotic agents; Z79.899 Other long term (current) drug therapy

== ENCOUNTER 2023-01-27 22:11 | Emergency (ER) | payer OTHER ==
[~2023-01-27 22:11] MED LIST changes: +LAMICTAL25 MG PO; +NORVASC10 MG PO; +ZESTRIL10 MG PO
[2023-01-27] MEDS ORDERED: LEXAPRO10 MG PO (22:53)
[2023-01-27 23:13] LABS: BILIRUBIN Negative (Negative); BLOOD Negative (Negative); CLARITY Clear (Clear); COLOR Yellow (Yellow); GLUCOSE Negative (Negative); KETONE Negative (Negative); LEUKO ESTERASE 1+ (Negative); NITRITE Negative (Negative); SPECIFIC GRAVITY <= 1.005 (1.001-1.030); UROBILINOGEN 0.2 E.U./dl (0.0-1.0)
[2023-01-27 23:30] LABS: BACTERIA TRACE
[2023-01-27] MEDS ORDERED: CIPRO500 MG PO (23:35)
== END 2023-01-27 23:42 | disposition home or self-care (01) ==
LOC: ED 22:11
PROVIDERS: Physician Assistant Medical
DX: N39.0 Urinary tract infection, site not specified (principal); F32.A Depression, unspecified; I10 Essential (primary) hypertension; E78.00 Pure hypercholesterolemia, unspecified; Z88.0 Allergy status to penicillin; Z88.1 Allergy status to other antibiotic agents; Z72.0 Tobacco use

== ENCOUNTER 2023-02-01 16:23 | Emergency (ER) | payer OTHER ==
[~2023-02-01] VITALS: Ht 157.4 cm; Wt 104.3 kg
[~2023-02-01 16:23] MED LIST changes: +CIPRO500 MG PO; +LEXAPRO10 MG PO
[2023-02-01 16:52] LABS: HEMATOCRIT 45.2 % (37.0-47.0); MEAN CELL VOLUME 85.3 fl (81.0-99.0); MEAN CORPUSCULAR HGB 28.3 pg (27.0-31.0); MEAN CORPUSCULAR HGB CONC 33.2 g/dl (33.0-37.0); MEAN PLATELET VOLUME 9.8 fl (9.6-12.3); PLATELET COUNT AUTOMATED 376 10*3/uL (130-400); RED CELL DISTRI WIDTH 13.2 % (0-14.5); WHITE BLOOD COUNT 14.6 10*3/uL (4.8-10.8)
[2023-02-01 16:53] LABS: MANUAL DIFF REFLEX YES
[2023-02-01 17:03] LABS: ACT PARTIAL THROMBO TIME 29.3 SECONDS (20.0-32.1)
[2023-02-01 17:06] LABS: BILIRUBIN Negative (Negative); BLOOD Negative (Negative); CLARITY Clear (Clear); COLOR Yellow (Yellow); GLUCOSE Negative (Negative); KETONE Negative (Negative); LEUKO ESTERASE Negative (Negative); NITRITE Negative (Negative); SPECIFIC GRAVITY <= 1.005 (1.001-1.030); UROBILINOGEN 0.2 E.U./dl (0.0-1.0)
[2023-02-01 17:14] LABS: URINE AMPHETAMINES Negative (1000ng/ml); URINE BARBITURATES Negative (200ng/ml); URINE BENZODIAZEPINES Negative (200ng/ml); URINE CANNABINOIDS (THC) Negative (50ng/ml); URINE COCAINE Negative (300ng/ml); URINE METHADONE Negative (300ng/ml); URINE OPIATES Negative (300ng/ml); URINE PHENCYCLIDINE Negative (25ng/ml)
[2023-02-01 17:15] LABS: ALKALINE PHOSPHATASE 135 U/L (46-116); BUN 8 mg/dl (9-23); CHLORIDE 108 mmol/L (98-107); ETHYL ALCOHOL 3.2 mg/dl (<3); LIPASE 41 U/L (12-53); POTASSIUM 3.7 mmol/L (3.4-5.1); SGPT/ALT 52 U/L (10-49); TOTAL PROTEIN 6.8 gm/dL (6.0-8.0)
[2023-02-01 17:18] LABS: BASOPHILS 2 % (0-1); PLATELET SUFFICIENCY NORMAL (NORMAL); TOTAL CELLS COUNTED 100 #CELLS
[2023-02-01 17:22] LABS: BACTERIA 3+
[2023-02-01] MEDS ORDERED: CIPRO500 MG PO (18:22)
== END 2023-02-01 19:10 | disposition home or self-care (01) ==
LOC: ED 16:23
PROVIDERS: Internal Medicine
DX: N39.0 Urinary tract infection, site not specified (principal); R11.2 Nausea with vomiting, unspecified; F17.200 Nicotine dependence, unspecified, uncomplicated; Z88.0 Allergy status to penicillin; Z88.1 Allergy status to other antibiotic agents; Z79.2 Long term (current) use of antibiotics; Z79.899 Other long term (current) drug therapy

== ENCOUNTER 2023-03-17 22:30 | Emergency (ER) | payer OTHER ==
[~2023-03-17] VITALS: Ht 157.4 cm; Wt 108.9 kg
== END 2023-03-17 23:08 | disposition home or self-care (01) ==
LOC: ED 22:30
DX: I10 Essential (primary) hypertension (principal); F32.A Depression, unspecified; E78.00 Pure hypercholesterolemia, unspecified; Z88.0 Allergy status to penicillin; Z88.1 Allergy status to other antibiotic agents; Z72.0 Tobacco use

== ENCOUNTER 2023-06-14 06:45 | Emergency (ER) | payer OTHER ==
[~2023-06-14] VITALS: Ht 157.4 cm; Wt 99.8 kg
[2023-06-14 07:51] LABS: HEMATOCRIT 40.5 % (37.0-47.0); MEAN CELL VOLUME 86.4 fl (81.0-99.0); MEAN CORPUSCULAR HGB 27.9 pg (27.0-31.0); MEAN CORPUSCULAR HGB CONC 32.3 g/dl (33.0-37.0); MEAN PLATELET VOLUME 10.4 fl (9.6-12.3); PLATELET COUNT AUTOMATED 278 10*3/uL (130-400); RED BLOOD COUNT 4.69 10*6/uL (4.10-5.10); RED CELL DISTRI WIDTH 13.3 % (0-14.5); WHITE BLOOD COUNT 12.1 10*3/uL (4.8-10.8)
[2023-06-14 07:52] LABS: MANUAL DIFF REFLEX YES
[2023-06-14 08:09] LABS: BASOPHILS 1 % (0-1); TOTAL CELLS COUNTED 100 #CELLS
[2023-06-14 08:10] LABS: BURR CELLS FEW; OVALOCYTES FEW; PLATELET SUFFICIENCY NORMAL (NORMAL); POLYCHROMASIA SLIGHT
[2023-06-14 08:12] LABS: ALKALINE PHOSPHATASE 106 U/L (46-116); BUN 15 mg/dl (9-23); CHLORIDE 108 mmol/L (98-107); LIPASE 43 U/L (12-53); POTASSIUM 3.7 mmol/L (3.4-5.1); SGPT/ALT 37 U/L (5-49); TOTAL PROTEIN 6.3 gm/dL (6.0-8.0)
[2023-06-14] MEDS ORDERED: PEPCID AC10 M2 PO (09:58)
== END 2023-06-14 10:02 | disposition home or self-care (01) ==
LOC: ED 06:45
PROVIDERS: Internal Medicine
DX: K21.9 Gastro-esophageal reflux disease without esophagitis (principal); F32.A Depression, unspecified; I10 Essential (primary) hypertension; E78.00 Pure hypercholesterolemia, unspecified; Z88.0 Allergy status to penicillin; Z88.1 Allergy status to other antibiotic agents; Z72.0 Tobacco use

== ENCOUNTER 2023-08-21 06:29 | Emergency (ER) | payer OTHER ==
[~2023-08-21] VITALS: Ht 157.4 cm; Wt 95.3 kg
[~2023-08-21 06:29] MED LIST changes: +PEPCID AC10 M2 PO
[2023-08-21] MEDS ORDERED: ESCITALOPRAM OX20 MG PO (06:44)
[2023-08-21] MEDS ORDERED: LAMOTRIGINE100 MG PO (06:44)
[2023-08-21] MEDS ORDERED: MELOXICAM15 MG PO (07:29)
[2023-08-21] MEDS ORDERED: CYCLOBENZAPRINE10 MG PO (07:29)
== END 2023-08-21 07:35 | disposition home or self-care (01) ==
LOC: ED 06:29
DX: S46.211A Strain of muscle, fascia and tendon of other parts of biceps, right arm, initial encounter (principal); F32.A Depression, unspecified; I10 Essential (primary) hypertension; E78.00 Pure hypercholesterolemia, unspecified; Z88.0 Allergy status to penicillin; Z88.1 Allergy status to other antibiotic agents; Z72.0 Tobacco use; W19.XXXA Unspecified fall, initial encounter; Y93.89 Activity, other specified; Y92.009 Unspecified place in unspecified non-institutional (private) residence as the place of occurrence of the external cause; Y99.8 Other external cause status

== ENCOUNTER 2023-08-27 15:16 | Emergency (ER) | payer OTHER ==
[~2023-08-27] VITALS: Ht 157.4 cm; Wt 95.3 kg
[~2023-08-27 15:16] MED LIST changes: +ESCITALOPRAM OX20 MG PO; +LAMOTRIGINE100 MG PO; +MELOXICAM15 MG PO
[2023-08-27 16:18] LABS: BASO # 0.1 10*3/uL (0.0-0.1); BASO % 0.4 % (0.0-1.0); EOS # 0.5 10*3/uL (0.0-0.4); EOS % 4.2 % (1.0-4.0); HEMATOCRIT 43.8 % (37.0-47.0); LYMPH # 3.4 10*3/uL (1.3-4.4); MEAN CELL VOLUME 86.1 fl (81.0-99.0); MEAN CORPUSCULAR HGB 28.1 pg (27.0-31.0); MEAN CORPUSCULAR HGB CONC 32.6 g/dl (33.0-37.0); MEAN PLATELET VOLUME 9.6 fl (9.6-12.3); MONO # 0.6 10*3/uL (0.1-1.0); MONO % 4.3 % (3.0-9.0); NEUT # 8.4 10*3/uL (2.3-7.9); NEUT % 64.7 % (47.0-73.0); PLATELET COUNT AUTOMATED 355 10*3/uL (130-400); RED BLOOD COUNT 5.09 10*6/uL (4.10-5.10); RED CELL DISTRI WIDTH 13.8 % (0-14.5)
[2023-08-27 16:38] LABS: BUN 9 mg/dl (9-23); CHLORIDE 103 mmol/L (98-107); POTASSIUM 3.3 mmol/L (3.4-5.1)
[2023-08-27] MEDS ORDERED: SEPTDS PO (16:49)
== END 2023-08-27 16:54 | disposition home or self-care (01) ==
LOC: ED 15:16
PROVIDERS: Internal Medicine
DX: L03.113 Cellulitis of right upper limb (principal); F32.A Depression, unspecified; I10 Essential (primary) hypertension; E78.00 Pure hypercholesterolemia, unspecified; Z88.0 Allergy status to penicillin; Z88.1 Allergy status to other antibiotic agents; Z72.0 Tobacco use

== ENCOUNTER 2023-10-24 06:38 | Emergency (ER) | payer OTHER ==
[~2023-10-24] VITALS: Ht 157.4 cm; Wt 95.7 kg
[2023-10-24] MEDS ORDERED: CIPROFLOXACIN H10 ML OPH (07:18)
== END 2023-10-24 07:28 | disposition home or self-care (01) ==
LOC: ED 06:38
DX: S05.01XA Injury of conjunctiva and corneal abrasion without foreign body, right eye, initial encounter (principal); F17.200 Nicotine dependence, unspecified, uncomplicated; Z88.0 Allergy status to penicillin; Z88.1 Allergy status to other antibiotic agents; Z79.899 Other long term (current) drug therapy; X58.XXXA Exposure to other specified factors, initial encounter; Y93.89 Activity, other specified; Y92.89 Other specified places as the place of occurrence of the external cause; Y99.8 Other external cause status

== ENCOUNTER 2024-02-10 07:57 | Emergency (ER) | payer OTHER ==
[~2024-02-10] VITALS: Ht 157.4 cm; Wt 97.5 kg
[~2024-02-10 07:57] MED LIST changes: +CIPROFLOXACIN H10 ML OPH
[2024-02-10 09:21] LABS: BILIRUBIN Negative (Negative); BLOOD Negative (Negative); CLARITY Clear (Clear); COLOR Yellow (Yellow); GLUCOSE Negative (Negative); KETONE Negative (Negative); LEUKO ESTERASE Negative (Negative); NITRITE Negative (Negative); PH 6.5 (4.5-8.0); UROBILINOGEN 0.2 E.U./dl (0.0-1.0)
[2024-02-10 10:03] LABS: BACTERIA 3+
[2024-02-10] MEDS ORDERED: VIBRAMYCIN100 MG PO (12:25)
== END 2024-02-10 12:51 | disposition home or self-care (01) ==
LOC: ED 07:57
PROVIDERS: Emergency Medicine
DX: R82.71 Bacteriuria (principal); M54.50 Low back pain, unspecified; F17.200 Nicotine dependence, unspecified, uncomplicated; Z88.0 Allergy status to penicillin; Z88.1 Allergy status to other antibiotic agents; Z79.899 Other long term (current) drug therapy

== ENCOUNTER 2024-05-15 06:13 | Emergency (ER) | payer OTHER ==
[~2024-05-15] VITALS: Ht 157.4 cm; Wt 97.5 kg
== END 2024-05-15 06:41 | disposition home or self-care (01) ==
LOC: ED 06:13
DX: J34.0 Abscess, furuncle and carbuncle of nose (principal); F32.A Depression, unspecified; I10 Essential (primary) hypertension; E78.00 Pure hypercholesterolemia, unspecified; Z88.0 Allergy status to penicillin; Z88.1 Allergy status to other antibiotic agents; Z72.0 Tobacco use

== ENCOUNTER 2024-06-15 21:42 | Emergency (ER) | payer OTHER ==
[~2024-06-15] VITALS: Ht 157.4 cm; Wt 104.3 kg
[2024-06-15] MEDS ORDERED: ACETAMINOPHEN 325 MG TAB PO ONE (23:05)
[2024-06-15 23:14] LABS: BASO # 0.1 10*3/uL (0.0-0.1); BASO % 0.5 % (0.0-1.0); EOS # 0.8 10*3/uL (0.0-0.4); EOS % 6.5 % (1.0-4.0); HEMATOCRIT 39.3 % (37.0-47.0); MEAN CELL VOLUME 89.1 fl (81.0-99.0); MEAN CORPUSCULAR HGB CONC 32.6 g/dl (33.0-37.0); MEAN PLATELET VOLUME 10.2 fl (9.6-12.3); MONO # 0.5 10*3/uL (0.1-1.0); MONO % 3.8 % (3.0-9.0); NEUT # 7.4 10*3/uL (2.3-7.9); NEUT % 56.8 % (47.0-73.0); PLATELET COUNT AUTOMATED 247 10*3/uL (130-400); RED BLOOD COUNT 4.41 10*6/uL (4.10-5.10); RED CELL DISTRI WIDTH 13.5 % (0-14.5)
[2024-06-15 23:48] LABS: BUN 10 mg/dl (9-23); CHLORIDE 106 mmol/L (98-107); POTASSIUM 3.8 mmol/L (3.4-5.1)
[2024-06-16] MEDS ORDERED: Labetalol Hydrochloride 100 MG TAB PO ONE (00:10)
[2024-06-16 01:35] LABS: BILIRUBIN Negative (Negative); BLOOD Negative (Negative); CLARITY Clear (Clear); COLOR Yellow (Yellow); GLUCOSE Negative (Negative); KETONE Negative (Negative); LEUKO ESTERASE Negative (Negative); NITRITE Negative (Negative); PH 6.5 (4.5-8.0); SPECIFIC GRAVITY <= 1.005 (1.001-1.030); UROBILINOGEN 0.2 E.U./dl (0.0-1.0)
[2024-06-16 02:11] LABS: BACTERIA TRACE; RBC 0-2 rbc/hpf (0-2); WBC 0-2 wbc/hpf (0-5)
== END 2024-06-16 02:28 | disposition home or self-care (01) ==
LOC: ED 21:42
PROVIDERS: Internal Medicine
DX: O26.891 Other specified pregnancy related conditions, first trimester (principal); R51.9 Headache, unspecified; I10 Essential (primary) hypertension; R10.2 Pelvic and perineal pain; F32.A Depression, unspecified; E78.00 Pure hypercholesterolemia, unspecified; Z3A.09 9 weeks gestation of pregnancy; Z88.0 Allergy status to penicillin; Z88.1 Allergy status to other antibiotic agents; Z72.0 Tobacco use

== ENCOUNTER 2024-08-15 09:05 | Emergency (ER) | payer OTHER ==
[~2024-08-15] VITALS: Ht 157.4 cm; Wt 102.2 kg
[2024-08-15] MEDS ORDERED: BUSPAR5 MG PO (09:48)
[2024-08-15] MEDS ORDERED: NORMODYNE,TRAN100 MG PO (09:48)
[2024-08-15 10:47] LABS: BASO % 0.3 % (0.0-1.0); EOS # 0.3 10*3/uL (0.0-0.4); EOS % 2.4 % (1.0-4.0); HEMATOCRIT 34.1 % (37.0-47.0); MEAN CELL VOLUME 88.6 fl (81.0-99.0); MEAN CORPUSCULAR HGB 28.8 pg (27.0-31.0); MEAN CORPUSCULAR HGB CONC 32.6 g/dl (33.0-37.0); MEAN PLATELET VOLUME 9.8 fl (9.6-12.3); MONO # 0.5 10*3/uL (0.1-1.0); MONO % 3.9 % (3.0-9.0); NEUT # 8.5 10*3/uL (2.3-7.9); NEUT % 64.8 % (47.0-73.0); PLATELET COUNT AUTOMATED 234 10*3/uL (130-400); RED BLOOD COUNT 3.85 10*6/uL (4.10-5.10); RED CELL DISTRI WIDTH 13.3 % (0-14.5); WHITE BLOOD COUNT 13.2 10*3/uL (4.8-10.8)
[2024-08-15 11:25] LABS: BUN 8 mg/dl (9-23); CHLORIDE 105 mmol/L (98-107); POTASSIUM 3.3 mmol/L (3.4-5.1)
== END 2024-08-15 13:45 | disposition left against medical advice (07) ==
LOC: ED 09:05
PROVIDERS: Internal Medicine
DX: O23.592 Infection of other part of genital tract in pregnancy, second trimester (principal); E87.6 Hypokalemia; F32.A Depression, unspecified; I10 Essential (primary) hypertension; E78.00 Pure hypercholesterolemia, unspecified; R10.2 Pelvic and perineal pain; Z53.29 Procedure and treatment not carried out because of patient's decision for other reasons; Z3A.17 17 weeks gestation of pregnancy; Z72.0 Tobacco use; Z88.0 Allergy status to penicillin; Z88.1 Allergy status to other antibiotic agents

== ENCOUNTER → 2024-10-27 | Outpatient (CLI) | payer OTHER ==
[~2024-10-27] MED LIST changes: +BUSPAR5 MG PO; +NORMODYNE,TRAN100 MG PO
== END | disposition home or self-care (01) ==
LOC: LAB 07:03
PROVIDERS: ATTEND Nurse Practitioner Women's Health
DX: R73.02 Impaired glucose tolerance (oral) (principal)

== ENCOUNTER → 2024-11-09 | Outpatient (CLI) | payer OTHER ==
[~2024-11-09] MED LIST changes: +Rho(D) Immune Globulin 300 MCG/2 ML SYR IM ONE
[2024-11-09 13:17] VITALS: BP 129/60
== END | disposition home or self-care (01) ==
LOC: INJECTION 10:56
PROVIDERS: ATTEND Nurse Practitioner Women's Health
DX: O26.893 Other specified pregnancy related conditions, third trimester (principal); Z67.41 Type O blood, Rh negative; O16.3 Unspecified maternal hypertension, third trimester; O99.283 Endocrine, nutritional and metabolic diseases complicating pregnancy, third trimester; E78.00 Pure hypercholesterolemia, unspecified; O99.343 Other mental disorders complicating pregnancy, third trimester; F32.A Depression, unspecified; O99.333 Smoking (tobacco) complicating pregnancy, third trimester; Z3A.29 29 weeks gestation of pregnancy

== ENCOUNTER → 2024-11-17 | Outpatient (CLI) | payer OTHER ==
[~2024-11-17] MED LIST changes: -Rho(D) Immune Globulin 300 MCG/2 ML SYR IM ONE
== END | disposition home or self-care (01) ==
LOC: D 09:08
PROVIDERS: ATTEND Nurse Practitioner Women's Health
DX: O24.419 Gestational diabetes mellitus in pregnancy, unspecified control (principal)

== ENCOUNTER 2025-01-16 20:45 | Emergency (ER) | payer OTHER ==
[~2025-01-16] VITALS: Wt 92.1 kg
[2025-01-16] MEDS ORDERED: hydrALAZINE hydrochloride 20 MG/ML VIAL IV ONE (21:20)
[2025-01-16 21:31] LABS: MEAN CELL VOLUME 88.3 fl (81.0-99.0); MEAN CORPUSCULAR HGB 28.1 pg (27.0-31.0); MEAN PLATELET VOLUME 9.8 fl (9.6-12.3); NUCLEATED RED BLOOD CELL 0.0 % (0.0-0.0); NUCLEATED RED BLOOD CELL 0.0 10*3/uL (0.0-0.0); PLATELET COUNT AUTOMATED 357 10*3/uL (130-400); RED CELL DISTRI WIDTH 12.6 % (0-14.5)
[2025-01-16 21:33] LABS: MANUAL DIFF REFLEX YES
[2025-01-16 21:54] LABS: BASOPHILS 2 % (0-1); PLATELET SUFFICIENCY NORMAL (NORMAL)
[2025-01-16 21:55] LABS: BUN 8 mg/dl (9-23)
[2025-01-16 22:12] LABS: BILIRUBIN Negative (Negative); BLOOD 3+ (Negative); CLARITY Cloudy (Clear); COLOR Red (Yellow); KETONE Negative (Negative); LEUKO ESTERASE 3+ (Negative); NITRITE Negative (Negative); PH 7.0 (4.5-8.0); SPECIFIC GRAVITY <= 1.005 (1.001-1.030); UROBILINOGEN 0.2 E.U./dl (0.0-1.0)
[2025-01-16 22:55] LABS: BACTERIA 2+; EPITHELIAL CELLS 41-50; RBC 31-40 rbc/hpf (0-2); WBC 41-50 wbc/hpf (0-5)
[2025-01-16] MEDS ORDERED: MAGNESIUM OXIDE 400 MG TAB PO ONE (23:05)
== END 2025-01-16 23:30 | disposition home or self-care (01) ==
LOC: ED 20:45
PROVIDERS: Internal Medicine
DX: R51.9 Headache, unspecified (principal); I10 Essential (primary) hypertension; D64.9 Anemia, unspecified; Z88.0 Allergy status to penicillin; Z88.1 Allergy status to other antibiotic agents

== ENCOUNTER 2025-02-21 16:13 | Emergency (ER) | payer OTHER ==
[~2025-02-21] VITALS: Ht 157.4 cm; Wt 95.3 kg
[2025-02-21 18:36] LABS: MEAN CELL VOLUME 87.4 fl (81.0-99.0); MEAN CORPUSCULAR HGB 27.9 pg (27.0-31.0); MEAN PLATELET VOLUME 10.1 fl (9.6-12.3); NUCLEATED RED BLOOD CELL 0.0 % (0.0-0.0); NUCLEATED RED BLOOD CELL 0.0 10*3/uL (0.0-0.0); PLATELET COUNT AUTOMATED 346 10*3/uL (130-400); RED CELL DISTRI WIDTH 12.7 % (0-14.5)
[2025-02-21 18:42] LABS: MANUAL DIFF REFLEX YES
[2025-02-21 18:56] LABS: SGPT/ALT 33 U/L (5-49)
[2025-02-21 18:59] LABS: BUN 10 mg/dl (9-23)
[2025-02-21 19:01] LABS: PLATELET SUFFICIENCY NORMAL (NORMAL)
[2025-02-21 19:02] LABS: STOMATOCYTE FEW
[2025-02-21 20:02] LABS: BILIRUBIN Negative (Negative); BLOOD Negative (Negative); CLARITY Clear (Clear); COLOR Yellow (Yellow); KETONE Negative (Negative); LEUKO ESTERASE Negative (Negative); NITRITE Negative (Negative); PH 6.5 (4.5-8.0); SPECIFIC GRAVITY <= 1.005 (1.001-1.030); UROBILINOGEN 0.2 E.U./dl (0.0-1.0)
[2025-02-21 20:06] LABS: MUCOUS 2+; RBC 0-2 rbc/hpf (0-2); WBC 0-2 wbc/hpf (0-5)
== END 2025-02-21 22:08 | disposition home or self-care (01) ==
LOC: ED 16:13
PROVIDERS: Emergency Medicine
DX: I10 Essential (primary) hypertension (principal); D72.829 Elevated white blood cell count, unspecified; F32.A Depression, unspecified; E78.00 Pure hypercholesterolemia, unspecified

== ENCOUNTER 2025-03-26 14:29 | Emergency (ER) | payer OTHER ==
[~2025-03-26] VITALS: Ht 157.4 cm; Wt 96.6 kg
[2025-03-26] MEDS ORDERED: diphenhydrAMINE hydrochloride 50 MG/ML VIAL IV ONE (14:45)
[2025-03-26] MEDS ORDERED: Metoclopramide Hydrochloride 10 MG/2 ML VIAL IV ONE (14:45)
[2025-03-26] MEDS ORDERED: ACETAMINOPHEN 325 MG TAB PO ONE (14:45)
[2025-03-26] MEDS ORDERED: SODIUM CHLORIDE 0.9% 1,000 ML IV ONE (14:45)
[2025-03-26 14:58] LABS: BASO # 0.1 10*3/uL (0.0-0.1); BASO % 0.7 % (0.0-1.0); EOS # 0.8 10*3/uL (0.0-0.4); EOS % 7.7 % (1.0-4.0); MEAN CELL VOLUME 85.8 fl (81.0-99.0); MEAN CORPUSCULAR HGB 27.2 pg (27.0-31.0); MEAN PLATELET VOLUME 9.7 fl (9.6-12.3); MONO # 0.4 10*3/uL (0.1-1.0); MONO % 4.3 % (3.0-9.0); NEUT # 5.7 10*3/uL (2.3-7.9); NEUT % 57.5 % (47.0-73.0); NUCLEATED RED BLOOD CELL 0.0 % (0.0-0.0); NUCLEATED RED BLOOD CELL 0.0 10*3/uL (0.0-0.0); PLATELET COUNT AUTOMATED 309 10*3/uL (130-400); RED CELL DISTRI WIDTH 13.2 % (0-14.5)
[2025-03-26 15:18] LABS: BUN 9 mg/dl (9-23)
[2025-03-26] MEDS ORDERED: KETOROLAC10 MG PO (15:27)
== END 2025-03-26 15:37 | disposition home or self-care (01) ==
LOC: ED 14:29
PROVIDERS: Nurse Practitioner Family
DX: R51.9 Headache, unspecified (principal); I10 Essential (primary) hypertension; E11.9 Type 2 diabetes mellitus without complications; Z88.0 Allergy status to penicillin; Z88.1 Allergy status to other antibiotic agents

== ENCOUNTER 2025-04-16 15:44 | Emergency (ER) | payer OTHER ==
[~2025-04-16] VITALS: Ht 208.2 cm; Wt 99.8 kg
[~2025-04-16 15:44] MED LIST changes: +KETOROLAC10 MG PO
[2025-04-16 16:23] LABS: BASO # 0.1 10*3/uL (0.0-0.1); BASO % 0.8 % (0.0-1.0); EOS # 1.0 10*3/uL (0.0-0.4); EOS % 9.4 % (1.0-4.0); MEAN CELL VOLUME 84.0 fl (81.0-99.0); MEAN CORPUSCULAR HGB 26.7 pg (27.0-31.0); MEAN PLATELET VOLUME 10.1 fl (9.6-12.3); MONO # 0.5 10*3/uL (0.1-1.0); MONO % 4.9 % (3.0-9.0); NEUT # 5.2 10*3/uL (2.3-7.9); NEUT % 46.9 % (47.0-73.0); NUCLEATED RED BLOOD CELL 0.0 % (0.0-0.0); NUCLEATED RED BLOOD CELL 0.0 10*3/uL (0.0-0.0); PLATELET COUNT AUTOMATED 318 10*3/uL (130-400); RED CELL DISTRI WIDTH 13.2 % (0-14.5)
[2025-04-16 16:42] LABS: BUN 13 mg/dl (9-23)
[2025-04-16 16:58] LABS: BILIRUBIN Negative (Negative); BLOOD Negative (Negative); CLARITY Clear (Clear); COLOR Yellow (Yellow); KETONE Negative (Negative); LEUKO ESTERASE Negative (Negative); NITRITE Negative (Negative); PH 6.5 (4.5-8.0); SPECIFIC GRAVITY <= 1.005 (1.001-1.030); UROBILINOGEN 0.2 E.U./dl (0.0-1.0)
[2025-04-16 17:04] LABS: BACTERIA 1+; WBC 0-2 wbc/hpf (0-5)
[2025-04-16 17:05] LABS: URINE AMPHETAMINES Negative (1000ng/ml); URINE BARBITURATES Negative (200ng/ml); URINE BENZODIAZEPINES Negative (200ng/ml); URINE CANNABINOIDS (THC) Negative (50ng/ml); URINE COCAINE Negative (300ng/ml); URINE METHADONE Negative (300ng/ml); URINE OPIATES Negative (300ng/ml); URINE PHENCYCLIDINE Negative (25ng/ml)
== END 2025-04-16 17:53 | disposition home or self-care (01) ==
LOC: ED 15:44
DX: I10 Essential (primary) hypertension (principal); F32.9 Major depressive disorder, single episode, unspecified; F41.9 Anxiety disorder, unspecified

== ENCOUNTER 2025-04-23 22:39 | Emergency (ER) | payer OTHER ==
[~2025-04-23] VITALS: Wt 102.1 kg
== END 2025-04-24 00:27 | disposition home or self-care (01) ==
LOC: ED 22:39
DX: I10 Essential (primary) hypertension (principal); R42 Dizziness and giddiness; R07.89 Other chest pain; Z88.0 Allergy status to penicillin; Z88.1 Allergy status to other antibiotic agents; Z79.899 Other long term (current) drug therapy